=== PATIENT | male | born 1980 | race Caucasian/White ===

== ENCOUNTER 2022-05-31 10:45 | Emergency (ER) | payer BC ==
[2022-05-31 10:59] VITALS: BP 154/74
--- NOTE | 2022-05-31 11:27 | XRay Report ---
XR chest routine 2V INDICATION / CLINICAL INFORMATION: Chest Pain. COMPARISON: None available. FINDINGS: SUPPORT DEVICES: None. HEART /PULMONARY VASCULATURE: No significant abnormality. LUNGS / PLEURA: No significant pulmonary or pleural abnormality. No pneumothorax. ADDITIONAL FINDINGS: No significant additional findings. IMPRESSION: 1. No acute findings. Signer Name: Koby Boudreaux MD Signed: 05/31/2022 11:23 AM Workstation Name: [id number]
[2022-05-31 12:11] LABS: Basophils % (Auto) 0.2 % (0.0-1.8); Hematocrit 45.8 % (35.5-45.6); Hemoglobin 14.8 gm/dl (11.8-15.2); Lymphocytes # (Auto) 1.6 K/mm3 (1.2-5.4); Mean Corpuscular HGB Conc 32 % (32-34); Mean Corpuscular Volume 91 fl (84-94); Monocytes # (Auto) 0.8 K/mm3 (0.0-0.8); Monocytes % (Auto) 5.5 % (0.0-7.3); Platelet Count 330 K/mm3 (140-440); Red Blood Count 5.01 M/mm3 (3.65-5.03); Red Cell Distribution Width 13.9 % (13.2-15.2)
[2022-05-31 12:45] LABS: Alanine Aminotransferase 21 units/L (7-56); Albumin 4.7 g/dL (3.9-5); BUN/Creatinine Ratio 21; Blood Urea Nitrogen 21 mg/dL (9-20); Calcium 9.1 mg/dL (8.4-10.2); Hemolysis Index 6
--- NOTE | 2022-06-01 17:34 | Electrocardiograph Report ---
[facility] Test Date: 2022-05-31 Test Time: 10:54:43 Pat Name: VIDAL HEALY III Department: Room: Gender: M Quality Head: KEHINDE : 1980 Requested By: ED DOC Order Number: [id number] Reading MD: Melly Crane Measurements Intervals [place] Rate: 87 P: 55 CT: 172 QRS: 46 QRSD: 106 T: 35 QT: 384 QTc: 463 Interpretive Statements Sinus rhythm Normal ECG No previous ECG available for comparison Electronically Signed On 06-01-2022 17:33:59 EDT by Melly Crane
== END 2022-05-31 12:50 | disposition left against medical advice (07) ==
LOC: ED 10:45
DX: R42 Dizziness and giddiness (principal); R00.0 Tachycardia, unspecified; Z53.21 Procedure and treatment not carried out due to patient leaving prior to being seen by health care provider
CPT/HCPCS: 71046; 80053; 84484; 85025; 93005